=== PATIENT | female | born 1950 | race Caucasian/White ===

== ENCOUNTER 2018-02-20 09:40 | Day surgery (SDC) | payer MEDICARE ==
[~2018-02-20] VITALS: Ht 162.6 cm; Wt 137.9 kg
[~2018-02-20 09:40] MED LIST: ALEN70 PO; AMOCLA875 PO; FAMO20 PO; HYDACE5 PO; IBUP800 PO; METF500 PO; NAPR500 PO; RXHYDACE PO; TRAM50 PO
== END 2018-02-20 22:56 | disposition home or self-care (01) ==
LOC: ORSCMMR 09:40 → ORD 11:30 → ORSCMMR 22:56
PROVIDERS: Internal Medicine Gastroenterology
PROC: 0DBK8ZX Excision of Ascending Colon, Via Natural or Artificial Opening Endoscopic, Diagnostic (ICD-10-PCS; principal; 2018-02-20 11:30)
DX: Z12.11 Encounter for screening for malignant neoplasm of colon (principal); K63.5 Polyp of colon; K57.30 Diverticulosis of large intestine without perforation or abscess without bleeding; Z80.0 Family history of malignant neoplasm of digestive organs; G47.33 Obstructive sleep apnea (adult) (pediatric); E11.9 Type 2 diabetes mellitus without complications; Z79.84 Long term (current) use of oral hypoglycemic drugs; Z79.899 Other long term (current) drug therapy; E66.01 Morbid (severe) obesity due to excess calories; Z68.43 Body mass index [BMI] 50.0-59.9, adult
CPT/HCPCS: 82947; 88305; J7030

== ENCOUNTER 2019-02-19 08:42 | Inpatient (IN) | payer MEDICARE ==
[~2019-02-19] VITALS: Ht 160 cm; Wt 116.0 kg
[~2019-02-19 08:42] MED LIST changes: +CELE200 PO; +CHOL10002 PO; +COQ1050 MG PO; +FURO20 PO; +ORLI120 PO; +Omega 3 1,0001 EACH PO; +THERA1 EACH PO; +TUMS500 MG PO; +VITAMIN B122500 MC1 PO
--- NOTE | 2019-02-19 09:49 | NUR ---
Ambulatory in Day Surgery History, Chart, Medications and Allergies reviewed before start of procedure. Lungs clear T/O to Auscultation. Patient confirms NPO status and agrees with scheduled surgery. Pre-Op teaching done. Pt verbalizes understanding.
--- NOTE | 2019-02-19 16:00 | NUR ---
02/19/19 1600 Divya Banda ALL COUNTS CORRECT.
--- NOTE | 2019-02-19 17:30 | NUR ---
PT TRANSFERRED TO ROOM ON OWN BED, A/0X4, GROGGY, NAUSEOUS, ANTIEMETIC PER MAR, VOMITING X 1 AND STATES SHE FEELS BETTER. POST OP VS COMMENCED, ICE IN PLACE, BED IN LOWEST POSITION, BED RAILS UP, CALL LIGHT WITHIN REACH
[2019-02-20 04:56] LABS: BASOPHILS ABSOLUTE AUTO 0.02 K/mm3 (0.00-0.23); BASOPHILS PERCENT AUTO 0 % (0-2); EOSINOPHILS ABSOLUTE AUTO 0.07 K/mm3 (0.00-0.68); EOSINOPHILS PERCENT AUTO 1 % (0-6); Hematocrit 31.4 % (33.0-51.0); Hemoglobin 10.4 g/dL (11.5-16.0); IMMATURE GRAN ABSOLUTE AUTO 0.02 K/mm3 (0.00-0.10); IMMATURE GRAN PERCENT AUTO 0 % (0-1); LYMPHOCYTES ABSOLUTE AUTO 0.83 K/mm3 (0.84-5.20); LYMPHOCYTES PERCENT AUTO 15 % (21-46); MONOCYTES ABSOLUTE AUTO 0.54 K/mm3 (0.16-1.47); MONOCYTES PERCENT AUTO 10 % (4-13); Mean Corpuscular HGB 30.1 pg (26.0-34.0); Mean Corpuscular HGB Conc 33.1 g/dL (31.5-36.5); Mean Corpuscular Volume 91 fL (80-100); Mean Platelet Volume 11.8 fL (9.1-12.4); NEUTROPHILS ABSOLUTE AUTO 4.15 K/mm3 (1.96-9.15); NEUTROPHILS PERCENT AUTO 74 % (41-73); Platelet Count 114 K/mm3 (150-400); RDW Coefficient Variation 12.4 % (11.7-14.2); RDW Standard Deviation 41.2 fL (35.1-46.3); Red Blood Cell Count 3.46 M/mm3 (3.80-5.20); White Blood Cell Count 5.63 K/mm3 (4.00-11.30)
[2019-02-20 05:09] LABS: Anion Gap 5 mmol/L (6-16); Blood Urea Nitrogen 11 mg/dL (8-24); Bun/Creatinine Ratio 19.1 (12.0-20.0); CO2, Blood 31 mmol/L (21-32); Chloride, Blood 106 mmol/L (98-108); Creatinine, Blood 0.58 mg/dL (0.40-1.00); Glomerular Filtration Rate >60 (60-); Glucose, Blood 133 mg/dL (70-99); Magnesium, Blood 1.7 mg/dL (1.6-2.4); Potassium, Blood 3.6 mmol/L (3.5-5.5); Sodium, Blood 142 mmol/L (136-145)
--- NOTE | 2019-02-20 07:37 | NUR ---
SHIFT SUMMARY PT IS POD 1 RIGHT KARLA. PT WAS NAUSEATED POST OP AND VOMITED 500ML, BUT HAS SINCE BEEN TOLERATING FULL LIQUIDS, NO MORE VOMITING. MEDICATED FOR PAIN PER EMAR. PT'S PAIN AND MOBILITY IMPROVED THIS MORNING, 1 ASSIST W/ FWW AND GB FOR AMBULATION, WALKED OUT IN [place] BRIEFLY X2 LAST NIGHT. PT VOIDING WITHOUT ISSUE. NO COVERAGE INDICATED AT HS. REPORT PASSED TO ONCOMING SHIFT.
[2019-02-20] MEDS ORDERED: ACET500 PO (10:08)
[2019-02-20] MEDS ORDERED: ASPI325EC PO (10:08)
[2019-02-20] MEDS ORDERED: OXYC5 PO (10:09)
--- NOTE | 2019-02-20 16:15 | NUR ---
DISCHARGE PT DISCHARGED TO HOME WITH HER . D/C INSTRUCTIONS & RX WERE GIVEN TO THE PT. PT STATES UNDERSTANDING. PT ENCOURAGED TO FOLLOW UP CELESTINO FOR ANY PROBLEMS OR CONCERNS. FRANSISCO REMAINS C/D/I.
== END 2019-02-20 16:19 | disposition home or self-care (01) | DRG 470 ==
LOC: SURS 08:42 → PRE IP 11:30 → SURS 17:30
PROVIDERS: ADMIT Orthopaedic Surgery
PROC: 0SR903Z Replacement of Right Hip Joint with Ceramic Synthetic Substitute, Open Approach (ICD-10-PCS; principal; 2019-02-19 11:30)
DX: M16.11 Unilateral primary osteoarthritis, right hip (principal); Z68.42 Body mass index [BMI] 45.0-49.9, adult; Z85.41 Personal history of malignant neoplasm of cervix uteri
CPT/HCPCS: 36415; 72170; 80048; 82947; 83735; 85025; 88300; 97110; 97116; 97162; 97530; C1776; J0171; J0690; J1885; J2250; J2405; J2704; J2795; J3010; J7120

== ENCOUNTER → 2022-04-06 | Outpatient (CLI) | payer MEDICARE ==
[~2022-04-06] MED LIST changes: +ACET500 PO; +ASPI325EC PO; +OXYC5 PO
== END | disposition home or self-care (01) ==
LOC: LAB SHORT 07:45 → LAB 07:45 → PLD 07:45
DX: L60.2 Onychogryphosis (principal); B35.1 Tinea unguium
CPT/HCPCS: 88305; 88312

== ENCOUNTER → 2023-03-17 | Outpatient (CLI) | payer MEDICARE ==
[2023-03-17 13:38] LABS: BASOPHILS ABSOLUTE AUTO 0.07 K/mm3 (0.00-0.23); BASOPHILS PERCENT AUTO 1 % (0-2); EOSINOPHILS ABSOLUTE AUTO 0.11 K/mm3 (0.00-0.68); EOSINOPHILS PERCENT AUTO 2 % (0-6); Hematocrit 40.7 % (33.0-51.0); Hemoglobin 13.7 g/dL (11.5-16.0); IMMATURE GRAN ABSOLUTE AUTO 0.01 K/mm3 (0.00-0.10); IMMATURE GRAN PERCENT AUTO 0 % (0-1); LYMPHOCYTES ABSOLUTE AUTO 1.46 K/mm3 (0.84-5.20); LYMPHOCYTES PERCENT AUTO 27 % (21-46); MONOCYTES PERCENT AUTO 7 % (4-13); Mean Corpuscular HGB 29.8 pg (26.0-34.0); Mean Corpuscular HGB Conc 33.7 g/dL (31.5-36.5); Mean Corpuscular Volume 89 fL (80-100); Mean Platelet Volume 11.4 fL (9.1-12.4); NEUTROPHILS ABSOLUTE AUTO 3.38 K/mm3 (1.96-9.15); NEUTROPHILS PERCENT AUTO 62 % (41-73); Platelet Count 158 K/mm3 (150-400); RDW Coefficient Variation 12.7 % (11.7-14.2); RDW Standard Deviation 40.5 fL (35.1-46.3); White Blood Cell Count 5.43 K/mm3 (4.00-11.30)
[2023-03-17 13:42] LABS: Calcium, Blood 8.5 mg/dL (8.5-10.1); Creatinine, Blood 0.75 mg/dL (0.40-1.00)
== END | disposition home or self-care (01) ==
LOC: LAB 13:34 → LAB SHORT 13:34
PROVIDERS: Chiropractor
DX: R60.0 Localized edema (principal)
CPT/HCPCS: 80048; 85025; 85379